=== PATIENT | male | born 1990 | race Caucasian/White ===

== ENCOUNTER 2018-03-12 01:07 | Emergency (ER) | payer BC ==
[~2018-03-12] VITALS: Ht 175.3 cm; Wt 104.5 kg
[2018-03-12 01:44] LABS: HEMATOCRIT 47.6 % (39.0-50.0); HEMOGLOBIN 16.7 g/dl (14.0-18.0); IMMATURE GRANULOCYTES 0.7 % (0.0-1.0); MEAN CELL VOLUME 90.5 fL CALC (80.0-100.0); MEAN CORPUSCULAR HGB 31.7 pG CALC (26.0-32.0); MEAN CORPUSCULAR HGB CONC 35.1 g/L CALC (32.0-36.0); NEUT# 7.04 thou/uL (1.82-7.42); RED BLOOD COUNT 5.26 mill/uL (4.70-6.10); RED CELL DISTRI WIDTH 12.4 % (11.5-15.5)
[2018-03-12 01:58] LABS: ALBUMIN 4.5 g/dL (3.2-5.0); ALKALINE PHOSPHATASE 90 u/l (38-126); AMYLASE 46 u/l (30-110); ANION GAP 21 (6-22 (CALC)); BILIRUBIN, TOTAL 0.4 mg/dL (0.0-1.4); BUN 18 mg/dL (9-20); BUN/CREATININE RATIO 18 (12-20 (CALC)); CARBON DIOXIDE 23 mmol/l (22-30); CHLORIDE 103 mmol/l (95-108); GFR > 60 ML/MIN (>=60 (CALC)); GFR FOR AFR.AMER. > 60 ML/MIN (>=60 (CALC)); LIPASE 79 u/l (23-300); POTASSIUM 3.9 mmol/l (3.5-5.1); SGOT/AST 32 u/l (17-59); SGPT/ALT 92 u/l (21-72); SODIUM 144 mmol/l (137-146); TOTAL PROTEIN 7.2 g/dL (6.3-8.2)
[2018-03-12 03:17] LABS: URINE BILIRUBIN - DIPSTICK NEGATIVE (NEGATIVE); URINE BLOOD DIPSTICK LARGE (NEGATIVE); URINE COLOR YELLOW; URINE GLUCOSE - DIPSTICK NEGATIVE (NEGATIVE); URINE KETONE TRACE mg/dL (NEGATIVE); URINE LEUK ESTERASE NEGATIVE (NEGATIVE); URINE NITRITE - DIPSTICK NEGATIVE (Negative); URINE PH 6.5 (4.5-8.0); URINE PROTEIN - DIPSTICK 30 mg/dL (NEG-TRACE); URINE SPECIFIC GRAVITY <=1.005; URINE UROBILINOGEN - DIPSTICK 0.2 E.U./dL (0.2)
[2018-03-12 03:49] LABS: URINE BACTERIA FEW hpf; URINE CLARITY CLEAR; URINE RBC TNTC RBC/hpf (0-5); URINE YEAST FEW hpf
[2018-03-12] MEDS ORDERED: ZOFRAN ODT4 MG PO (03:51)
[2018-03-12] MEDS ORDERED: LORTAB 1010 MG PO (03:51)
[2018-03-12] MEDS ORDERED: TAMSULOSIN0.4 MG PO (03:51)
[2018-03-12 04:06] VITALS: BP 115/70
== END 2018-03-12 04:06 | disposition home or self-care (01) | DRG 694 ==
LOC: ED 01:07
PROVIDERS: Emergency Medicine
DX: N13.2 Hydronephrosis with renal and ureteral calculous obstruction (principal); F17.210 Nicotine dependence, cigarettes, uncomplicated